=== PATIENT | female | born 1970 | race Caucasian/White ===

== ENCOUNTER 2024-12-12 08:14 | Outpatient (CLI) | payer MEDICAID, SELFPAY ==
[2024-12-11 16:19] LABS: Basophils % (Auto) 1 % (0-2.5); Eosinophils # (Auto) 0.1 Thou/mm3 (0.0-0.5); Eosinophils % (Auto) 1 % (0-10); Hematocrit 34.2 % (36.0-46.0); Immature Granulocytes % (Auto) 0 % (0-0); Immature Granulocytes Auto 0.02 Thou/mm3 (0.00-0.00); Lymphocytes # (Auto) 1.5 Thou/mm3 (1.0-4.8); Lymphocytes % (Auto) 32 % (10-50); Mean Corpuscular HGB Conc 35.1 g/dl (31.0-37.0); Mean Corpuscular Hemoglobin 31.6 pg (25.0-35.0); Mean Corpuscular Volume 90 fL (80-100); Monocytes # (Auto) 0.5 Thou/mm3 (0.0-0.8); Monocytes % (Auto) 11 % (0-12); Neutrophils # (Auto) 2.4 Thou/mm3 (1.8-7.7); Neutrophils % (Auto) 54 % (37-80); Nucleated Red Blood Cell % 0 /100 WBC (0); Platelet Count 182 Thou/mm3 (140-440); RDW Standard Deviation 41.1 fL (36.4-46.3); White Blood Count 4.5 Thou/mm3 (3.6-11.0)
[2024-12-11 16:38] LABS: INR 1.1 (0.9-1.3); Partial Thromboplastin Time 27.7 Seconds (22.0-36.0); Prothrombin Time 11.6 Seconds (9.0-12.2)
--- NOTE | 2024-12-12 08:30 | XR_ITS ---
Examinations: Ultrasound-guided percutaneous breast biopsy, left breast 2:00 nodule Left breast sonography limited INDICATIONS: Left breast sonogram September 19, 2024 BI-RADS 4 suspicious mass 2:00 position left breast. Exam date and time: December 12, 2024 0911 hours. Informed consent provided. Technique: A timeout was completed verifying correct patient, procedure, site, positioning, and special equipment if applicable Informed consent provided. The patient was placed in a supine position for the breast biopsy. Sonographic images of the breast were performed for localization of the suspicious nodule The patient's breast was prepped and draped in sterile fashion. Maximum sterile barrier technique, hand hygiene, ultrasound sterile technique 1% lidocaine was used to anesthetize the skin and breast adjacent to the suspicious nodule. Utilizing ultrasonographic guidance, 8 core biopsies were obtained of the suspicious nodule utilizing an 18-gauge BioPince needle. The specimens appears satisfactory. \ Estimated blood loss 3 cc. The patient tolerated the procedure well and there were no complications. Impression: Successful ultrasound-guided percutaneous breast biopsy left breast 2:00 nodule
== END 2024-12-12 08:56 | disposition home or self-care (01) ==
LOC: SIRX 08:14
PROVIDERS: Radiology Diagnostic Radiology; PCP Family Medicine; Referring Provider Family Medicine; Visit Provider Family Medicine
DX: C50.412 Malignant neoplasm of upper-outer quadrant of left female breast (principal); Z01.812 Encounter for preprocedural laboratory examination
CPT/HCPCS: 19083; 36415; 85025; 85610; 85730

== ENCOUNTER 2025-02-12 09:03 | Outpatient (RCR) | payer MEDICAID, SELFPAY ==
--- NOTE | 2025-02-12 22:31 | CTCCONSULT_ITS ---
Patient: RESHMA WEBER : 1970 MR#: [id number] Page 4 of 6 CONSULTATION NOTE DATE OF CONSULTATION: 02/12/2025 NAME: RESHMA WEBER ACCOUNT: [id number] : 1970 AGE: 55 REFERRING PHYSICIAN: Juan Pinto MD PRIMARY PHYSICIAN: Juan Pinto MD REASON FOR VISIT: New consult for Breast Cancer ONCOLOGY HISTORY: DIAGNOSIS: Malignant neoplasm of overlapping sites of left female breast [ICD10] C50.812 DATE OF DIAGNOSIS: 12/12/2024 STAGE/TNM: IIA T2 N0 M0 TREATMENT HISTORY: Care?Plan Start?Date Cycle Day Intent DOCETAXEL,?HERCEPTIN,?PERJETA,?CARBO 02/12/202512 05 Curative?(primary) HISTORY OF PRESENT ILLNESS: 55-year-old female who was initially diagnosed with suspicious mass in September 2024. Patient eventually had a biopsy in November 2024 and was diagnosed with invasive ductal carcinoma. Patient have not received any treatment for the cancer. Getting worse. OTHER MEDICAL HISTORY/CONDITIONS: SEIZURE??EPISODES?X5?YEARS RT?WRIST?2021,?LT?ARM?2023 FAMILY HISTORY: Patient?denies?family?cancer?history. 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 Celexa - 20 mg 1 tab Daily 2. Dilantin Extended - 100 mg 3 Capsule Three times a day Medications Last Reconciled by Taryn Agosto MA on 02/12/2025 ALLERGIES: Compazine REVIEW OF SYSTEMS: A complete 14-point review of systems was performed and is negative except as noted in interval history. PHYSICAL EXAMINATION: VITAL SIGNS: Temperature?98.3, B/P?113/76, Height?64?inches, Oxygen?Saturation?100% Weight?116?lbs PAIN: 0 - No pain GENERAL APPEARANCE: Appears well, in no apparent distress, appropriately interactive. HEENT: Normocephalic, no temporal wasting, normal conjunctiva, no scleral icterus, normal hearing, lips without lesions, neck normal range of motion. CARDIOVASCULAR: Not assessed. PULMONARY: Normal respiratory effort, no respiratory distress or use of accessory muscles, speaking in full sentences, no tachypnea. EXTREMITIES: No pedal edema or cyanosis. SKIN: Normal skin appearance. NEUROLOGIC: Alert and oriented x4. PSHYCHIATRIC: Appropriate affect, mood normal, behavior normal, intact thought and speech. Bilateral breast implants palpated. Left breast has about 5 cm mass cystic in nature over the implant under the skin. LABORATORY DATA: I have personally reviewed and interpreted each of the patient?s relevant lab tests, abnormal findings are below: Date ASSESSMENT/PLAN: ER positive [place] negative HER2 positive breast cancer at least stage IIa Patient have HER2 positive breast cancer and will need neoadjuvant chemotherapy Young patient with no comorbidities Will start on TCHP Baseline echocardiogram Port catheter for chemotherapy First cycle without Perjeta Second cycle with the Perjeta loading Start chemotherapy LEATHA General surgery referral to start port catheter LEATHA Patient can get surgery after neoadjuvant chemotherapy Patient is planning for conservative breast surgery Will refer to radiation after the chemotherapy Baseline imaging to confirm staging ORDERS: Order # Description [id number] Breast Ultrasound + Left [id number] CBC + Comprehensive Metabolic Panel [id number] Lab Appointment [id number] Follow Up Appointment [id number] CBC + Comprehensive Metabolic Panel [id number] Lab Appointment [id number] Follow Up Appointment [id number] CBC + Comprehensive Metabolic Panel [id number] Lab Appointment [id number] Follow Up Appointment [id number] CBC + Comprehensive Metabolic Panel [id number] Lab Appointment [id number] Follow Up Appointment [id number] Cardiac ECHO [id number] CBC + Comprehensive Metabolic Panel [id number] Lab Appointment [id number] Follow Up Appointment [id number] CBC + Comprehensive Metabolic Panel [id number] Lab Appointment [id number] Follow Up Appointment RETURN TO CLINIC: 4 weeks after cycle 1 chemotherapy BILLING AND COMPLIANCE: I reviewed external records from providers outside my specialty as summarized above. I spent a total of 50 minutes on this patient?s care on the day of their visit excluding time spent related to any billed procedures. This time includes time spent with the patient as well as time spent documenting in the medical record, reviewing patients records and tests, obtaining history, placing orders, communicating with other healthcare professionals, counseling the patient, family or caregiver, and/or care coordination for the diagnoses above. Electronically Signed by: Juan Pinto MD T: 10:29 PM CC: PCP: Juan Pinto Referring: Juan Pinto This document was completed utilizing speech recognition software. Grammatical errors, random word insertions, pronoun errors, and incomplete sentences are an occasional consequence of this system due to software limitations, ambient noise, and hardware issues. Any formal questions or concerns about the content, text or information contained within the body of this dictation should be directly addressed to the provider for clarification.
== END 2025-02-12 23:59 | disposition home or self-care (01) ==
LOC: SCTC 09:03
PROVIDERS: PCP Physician Assistant; Referring Provider Internal Medicine Hematology & Oncology; Visit Provider Internal Medicine Hematology & Oncology
DX: C50.412 Malignant neoplasm of upper-outer quadrant of left female breast (principal); Z17.0 Estrogen receptor positive status [ER+]; Z17.22 Progesterone receptor negative status; Z17.31 Human epidermal growth factor receptor 2 positive status
CPT/HCPCS: 99213; G0463

== ENCOUNTER 2025-02-23 08:10 | Outpatient (CLI) | payer MEDICAID, SELFPAY ==
[2025-02-22 09:51] LABS: Basophils % (Auto) 1 % (0-2.5); Eosinophils # (Auto) 0.1 Thou/mm3 (0.0-0.5); Eosinophils % (Auto) 2 % (0-10); Hemoglobin 12.4 g/dL (12.0-16.0); Immature Granulocytes % (Auto) 0 % (0-0); Immature Granulocytes Auto 0.02 Thou/mm3 (0.00-0.00); Lymphocytes # (Auto) 1.1 Thou/mm3 (1.0-4.8); Lymphocytes % (Auto) 24 % (10-50); Mean Corpuscular HGB Conc 35.4 g/dl (31.0-37.0); Mean Corpuscular Hemoglobin 31.5 pg (25.0-35.0); Mean Corpuscular Volume 89 fL (80-100); Monocytes # (Auto) 0.6 Thou/mm3 (0.0-0.8); Monocytes % (Auto) 14 % (0-12); Neutrophils # (Auto) 2.7 Thou/mm3 (1.8-7.7); Neutrophils % (Auto) 60 % (37-80); Nucleated Red Blood Cell % 0 /100 WBC (0); Platelet Count 143 Thou/mm3 (140-440); RDW Standard Deviation 42.5 fL (36.4-46.3); Red Blood Count 3.94 Miln/mm3 (4.00-5.20); White Blood Count 4.6 Thou/mm3 (3.6-11.0)
[2025-02-22 10:09] LABS: Partial Thromboplastin Time 27.7 Seconds (22.0-36.0); Prothrombin Time 11.4 Seconds (9.0-12.2)
[2025-02-23] VITALS (16 sets, daily range): BP systolic 109–141; BP diastolic 58–79; PULSE 60–80; RESP 12–19; TEMP 36.1–36.8; O2SAT 100
--- NOTE | 2025-02-23 10:00 | XR_ITS ---
Exam: Fluoroscopic and ultrasound-guided right IJ port placement. Date: February 23, 2025 Indication: Needs long-term vascular access Fluoroscopy time 1.5 minutes Dose: 463 mGy Technique: After a discussion of risks and benefits informed consent was obtained from the patient. Patient was brought to the angiography suite and placed supine on the exam table. Preliminary ultrasound evaluation showed the right IJ to be patent. The skin overlying the right neck and upper chest was cleaned and draped in normal sterile surgical fashion. 20 cc's of 1% lidocaine was used for local anesthesia. Conscious sedation was begun with direct nursing supervision. Using ultrasound guidance access to the IJ was obtained with a micropuncture needle. An 0.018 wire was advanced through the needle into the SVC and the needle was withdrawn. A 5 [place]er micropuncture change sheath was advanced over the wire, and the wire removed. The sheath was capped. A 5 cm incision was made over right chest. Small pouch was created with a combination of sharp and blunt dissection. The port and catheter tubing were attached to the tunneling device and pulled underneath the skin and exiting at the right IJ access site. Right IJ 5 inch sheath was replaced with a 7 [place]er peel-away sheath. Catheter was advanced through the peel-away sheath and peel-away sheath was removed. Distal catheter tip was appropriately positioned at the cavoatrial junction. The port pocket was closed with deep interrupted sutures using 2-0 Vicryl and superficial running sutures utilized 3-0 Vicryl. IJ access site was closed with 3-0 Vicryl and Dermabond glue Port flushed and aspirated easily and is ready for use. Impression: Successful placement of right IJ port as above with distal tip at the caval atrial junction Catheter is ready for use.
== END 2025-02-23 13:26 | disposition home or self-care (01) ==
PROVIDERS: Radiology Diagnostic Radiology; PCP Family Medicine; Referring Provider Family Medicine; Visit Provider Family Medicine
DX: C50.912 Malignant neoplasm of unspecified site of left female breast (principal); Z01.812 Encounter for preprocedural laboratory examination
CPT/HCPCS: 36558; 36415; 76937; 77001; 85025; 85610; 85730; 99152; 99153; C1769; C1788; C1894; J7050

== ENCOUNTER 2025-03-09 10:14 | Outpatient (RCR) | payer MEDICAID, SELFPAY ==
[2025-03-07 16:57] LABS: Basophils % (Auto) 1 % (0-2.5); Eosinophils # (Auto) 0.1 Thou/mm3 (0.0-0.5); Eosinophils % (Auto) 2 % (0-10); Hematocrit 32.2 % (36.0-46.0); Hemoglobin 11.2 g/dL (12.0-16.0); Immature Granulocytes % (Auto) 1 % (0-0); Immature Granulocytes Auto 0.02 Thou/mm3 (0.00-0.00); Lymphocytes # (Auto) 1.3 Thou/mm3 (1.0-4.8); Lymphocytes % (Auto) 37 % (10-50); Mean Corpuscular HGB Conc 34.8 g/dl (31.0-37.0); Mean Corpuscular Hemoglobin 31.3 pg (25.0-35.0); Mean Corpuscular Volume 90 fL (80-100); Monocytes # (Auto) 0.4 Thou/mm3 (0.0-0.8); Monocytes % (Auto) 12 % (0-12); Neutrophils # (Auto) 1.7 Thou/mm3 (1.8-7.7); Neutrophils % (Auto) 48 % (37-80); Nucleated Red Blood Cell % 0 /100 WBC (0); Platelet Count 171 Thou/mm3 (140-440); RDW Standard Deviation 42.4 fL (36.4-46.3); Red Blood Count 3.58 Miln/mm3 (4.00-5.20); White Blood Count 3.6 Thou/mm3 (3.6-11.0)
[2025-03-07 17:24] LABS: Alanine Aminotransferase 16 U/L (10-49); Albumin, Serum 3.9 gm/dL (3.5-5.0); Albumin/Globulin Ratio 1.5 (1.2-2.2); Alkaline Phosphatase 74 U/L (46-116); Anion Gap 9 (7-16); Aspartate Amino Transferase 27 U/L (0-34); BUN/Creatinine Ratio 16 Ratio (12-20); Bilirubin,Total 0.3 mg/dL (0.3-1.2); Blood Urea Nitrogen 13 mg/dL (9-23); Calcium 8.9 mg/dL (8.3-10.6); Carbon Dioxide 24.7 mMol/L (20.0-31.0); Chloride 103 mMol/L (98-107); Creatinine (Component) 0.8 mg/dL (0.6-1.3); Globulin 2.6 gm/dL (2.3-3.5); Glucose 104 mg/dL (74-106); Osmolality,Calculated 273 (275-295); Potassium 3.5 mMol/L (3.4-5.1); Sodium 137 mMol/L (136-145); Total Protein 6.5 gm/dL (5.7-8.2); eGFR > 60 See Note
== END 2025-03-14 23:59 | disposition home or self-care (01) ==
LOC: SCTC 10:14
PROVIDERS: PCP Family Medicine; Referring Provider Family Medicine; Visit Provider Internal Medicine Hematology & Oncology
DX: Z51.11 Encounter for antineoplastic chemotherapy (principal); C50.412 Malignant neoplasm of upper-outer quadrant of left female breast; Z17.0 Estrogen receptor positive status [ER+]; Z17.22 Progesterone receptor negative status; Z17.31 Human epidermal growth factor receptor 2 positive status
CPT/HCPCS: 36591; 80053; 85025; 96367; 96372; 96413; 96415; 96417; A4216; J1100; J1453; J1642; J2405; J7050; J9045; J9171; J9306; Q5117; Q5122; J2506

== ENCOUNTER → 2025-03-23 | Outpatient (CLI) | payer MEDICAID, SELFPAY ==
--- NOTE | 2025-03-23 14:30 | XR_ITS ---
Examination: Breast ultrasound, unilateral, left complete Date and time of exam: March 23, 2025 1516 hours Comparison left breast biopsy 2:00 nodule December 04, 2024, mammogram September 19, 2024, left breast sonogram September 19, 2024 INDICATIONS: Breast cancer diagnosis left breast on biopsy December 04, 2024, mammogram September 19, 2024 2:00 nodule 28 mm indistinct margins, left breast sonogram September 19, 2024 2:00 nodule indistinct margins 27 x 22 mm Technique: Real-time marcano scale ultrasonographic imaging performed left breast including all 4 quadrants as well as nipple retroareolar and axillary region. Findings: 2:00 oval mass indistinct margins 3.4 x 1.4 x 2.8 cm IMPRESSION: Enlarging BI-RADS 5 nodule 2:00 position left breast
== END | disposition home or self-care (01) ==
PROVIDERS: PCP Family Medicine; Referring Provider Internal Medicine Hematology & Oncology; Visit Provider Internal Medicine Hematology & Oncology
DX: N63.21 Unspecified lump in the left breast, upper outer quadrant (principal); C50.812 Malignant neoplasm of overlapping sites of left female breast
CPT/HCPCS: 76641

== ENCOUNTER → 2025-03-27 | Outpatient (CLI) | payer MEDICAID, SELFPAY ==
--- NOTE | 2025-03-27 12:30 | XR_ITS ---
Examination: Bone scan whole body, radioisotope Date and time of exam: March 27, 2025 1234 hours INDICATIONS: Diagnosis malignant neoplasm left breast diagnosed January 2025, receiving chemotherapy, staging Technique: Study has been performed with intravenous administration of 23.4 mci 99M technetium MDP. Anterior, posterior whole body images are obtained. Images have been obtained including the lower extremities. Findings: Increased isotope accumulation right mandible Increased isotope accumulation left shoulder IMPRESSION: Positive bone scan but nonspecific Recommend plain films mandible left shoulder follow-up
== END | disposition home or self-care (01) ==
LOC: SNUC 08:53
PROVIDERS: Referring Provider Family Medicine; Visit Provider Family Medicine
DX: R93.7 Abnormal findings on diagnostic imaging of other parts of musculoskeletal system (principal); C50.912 Malignant neoplasm of unspecified site of left female breast
CPT/HCPCS: 78306; A9503

== ENCOUNTER 2025-04-05 12:04 | Outpatient (RCR) | payer MEDICAID, SELFPAY ==
[2025-03-28 15:01] LABS: Basophils % (Auto) 0 % (0-2.5); Eosinophils % (Auto) 1 % (0-10); Hematocrit 29.4 % (36.0-46.0); Hemoglobin 10.7 g/dL (12.0-16.0); Immature Granulocytes % (Auto) 3 % (0-0); Immature Granulocytes Auto 0.17 Thou/mm3 (0.00-0.00); Lymphocytes # (Auto) 1.4 Thou/mm3 (1.0-4.8); Lymphocytes % (Auto) 23 % (10-50); Mean Corpuscular HGB Conc 36.4 g/dl (31.0-37.0); Mean Corpuscular Volume 88 fL (80-100); Monocytes # (Auto) 0.6 Thou/mm3 (0.0-0.8); Monocytes % (Auto) 10 % (0-12); Neutrophils # (Auto) 3.7 Thou/mm3 (1.8-7.7); Neutrophils % (Auto) 63 % (37-80); Nucleated Red Blood Cell % 0 /100 WBC (0); Platelet Count 195 Thou/mm3 (140-440); RDW Standard Deviation 41.4 fL (36.4-46.3); Red Blood Count 3.34 Miln/mm3 (4.00-5.20); White Blood Count 5.9 Thou/mm3 (3.6-11.0)
[2025-03-28 15:27] LABS: Alanine Aminotransferase 15 U/L (10-49); Albumin, Serum 4.2 gm/dL (3.5-5.0); Albumin/Globulin Ratio 1.6 (1.2-2.2); Alkaline Phosphatase 90 U/L (46-116); Anion Gap 11 (7-16); Aspartate Amino Transferase 26 U/L (0-34); BUN/Creatinine Ratio 10 Ratio (12-20); Bilirubin,Total 0.3 mg/dL (0.3-1.2); Blood Urea Nitrogen 7 mg/dL (9-23); Calcium 8.7 mg/dL (8.3-10.6); Calcium (Corrected) 8.7 mg/dL (8.5-10.1); Carbon Dioxide 24.7 mMol/L (20.0-31.0); Chloride 97 mMol/L (98-107); Creatinine (Component) 0.7 mg/dL (0.6-1.3); Globulin 2.7 gm/dL (2.3-3.5); Glucose 98 mg/dL (74-106); Osmolality,Calculated 264 (275-295); Potassium 3.7 mMol/L (3.4-5.1); Sodium 133 mMol/L (136-145); Total Protein 6.9 gm/dL (5.7-8.2); eGFR > 60 See Note
--- NOTE | 2025-04-11 00:03 | CTCFLWUP_ITS ---
Patient: RESHMA WEBER : 1970 Page 4 of 5 FOLLOW UP NOTE DATE OF SERVICE: 04/04/2025 NAME: RESHMA WEBER ACCOUNT: [id number] : 1970 AGE: 55 INTERVAL HISTORY: Doing well on treatment . ONCOLOGY HISTORY: DIAGNOSIS: Malignant neoplasm of overlapping sites of left female breast [ICD10] C50.812 DATE OF DIAGNOSIS: 12/12/2024 STAGE/TNM: IIA T2 N0 M0 TREATMENT HISTORY: Care?Plan Start?Date Cycle Day Intent DOCETAXEL,?HERCEPTIN,?PERJETA,?CARBO 03/08/2025 1 Curative?(primary) HISTORY OF PRESENT ILLNESS: 55-year-old female who was initially diagnosed with suspicious mass in September 2024. Patient eventually had a biopsy in November 2024 and was diagnosed with invasive ductal carcinoma. Patient have not received any treatment for the cancer. Getting worse. OTHER MEDICAL HISTORY/CONDITIONS: SEIZURE??EPISODES?X5?YEARS RT?WRIST?2021,?LT?ARM?2023 FAMILY HISTORY: Patient?denies?family?cancer?history. SOCIAL HISTORY: Occupational?History:?UNEMPLOYED, STAY AT HOME Education?Level:?College Graduate, 2 year degree Marital?Status:?Single Tobacco Use:?OCCASIONALY, VAPE SMOKER X 1 YEAR Drug?Note:?DENIES Social?History?Note:?OCCASIONALLY [employer] HISTORY: Menarche?-?Age:?14 Date?LMP:?11/15/1997 Date?of?last?pap?smear:?2023 Hormone?Use:?YES,?10?YRS :?1 Live?Births:?0 Painful?intercourse:?N-No Date?Last?Mammogram:?09/19/2024 Gynecological?Note:?not?sexually?active MEDICATIONS: 1. Celexa - 20 mg 1 tab Daily 2. dexamethasone - 4 mg 1 tab Daily 3. Dilantin Extended - 100 mg 3 Capsule Three times a day 4. Emend - 125 mg (1)- 80 mg (2) 1 Capsule Daily 5. Lidocaine Viscous - 2 % 2 Teaspoon Daily 6. Maalox Advanced - 200-200-20 mg/5 mL 20 mL Daily 7. nystatin - 100,000 unit/mL 1 mL Daily 8. ondansetron - 8 mg 1 tab Daily Medications Last Reconciled by Huma Kidd MA on 04/04/2025 ALLERGIES: Compazine; Compazine REVIEW OF SYSTEMS: A complete 14-point review of systems was performed and is negative except as noted in interval history. PHYSICAL EXAMINATION: VITAL SIGNS: Temperature?98.2, B/P?119/73, Oxygen?Saturation?100% Weight?109?lbs (Change?since?03/30/25:?-4.2?lbs) PAIN: 0 - No pain ECOG Performance Status: 0 - Asymptomatic and fully active GENERAL APPEARANCE: Appears well, in no apparent distress, appropriately interactive. HEENT: Normocephalic, no temporal wasting, normal conjunctiva, no scleral icterus, normal hearing, lips without lesions, neck normal range of motion. CARDIOVASCULAR: Not assessed. PULMONARY: Normal respiratory effort, no respiratory distress or use of accessory muscles, speaking in full sentences, no tachypnea. EXTREMITIES: No pedal edema or cyanosis. SKIN: Normal skin appearance. NEUROLOGIC: Alert and oriented x4. PSHYCHIATRIC: Appropriate affect, mood normal, behavior normal, intact thought and speech. Bilateral breast implants palpated. Left breast has about 2-3 cm which was 5 cm mass cystic in nature over the implant under the skin. LABORATORY DATA: I have personally reviewed and interpreted each of the patient?s relevant lab tests, abnormal findings are below: Date 03/07/25 03/28/25 ??WHITE?BLOOD?COUNT?(Thou/mm3) 3.6 5.9 ??RED?BLOOD?COUNT?(Miln/mm3) 3.58?L 3.34?L ??HEMOGLOBIN?(gm/dl) 11.2?L 10.7?L ??HEMATOCRIT?(%) 32.2?L 29.4?L ??PLATELET?COUNT?(Thou/mm3) 171 195 ??NEUTROPHILS?%,?AUTO?(%) 48 63 ??LYMPH?%,?AUTO?(%) 37 23 ??NEUTROPHILS,?AUTO?(Thou/mm3) 1.7?L 3.7 ??GLUCOSE,RANDOM?(mg/dL) 104 98 ??BLOOD?UREA?NITROGEN?(mg/dL) 13 7?L ??CREATININE?(mg/dL) 0.80 0.70 ??SODIUM?(mmol/L) 137 133?L ??POTASSIUM?(mmol/L) 3.5 3.7 ??CHLORIDE?(mmol/L) 103 97?L ??CrCl?(CandG)?(ml/min) 65.56 72.36 ??AST/SGOT?(Unit/L) 27 26 ??ALT/SGPT?(Unit/L) 16 15 ??ALKALINE?PHOSPHATASE?(Unit/L) 74 90 ??BILIRUBIN,?TOTAL?(mg/dL) 0.3 0.3 ??PROTEIN?TOTAL?(gm/dl) 6.5 6.9 ??ALBUMIN,?SERUM?(gm/dl) 3.9 4.2 ??GLOBULIN?(gm/dl) 2.6 2.7 ??ALBUMIN/GLOBULIN?RATIO 1.5 1.6 ??CALCIUM,?SERUM?(mg/dL) 8.9 8.7 ??CALCIUM?SERUM?(CORRECTED)?(mg/dL) 9.0 8.7 ASSESSMENT/PLAN: ER positive [place] negative HER2 positive breast cancer at least stage IIa Patient have HER2 positive breast cancer and will need neoadjuvant chemotherapy Young patient with no comorbidities on TCHP Baseline echocardiogram stable Port catheter for chemotherapy Cont chemotherapy General surgery referral was done Patient can get surgery after neoadjuvant chemotherapy Patient is planning for conservative breast surgery Will refer to radiation after the chemotherapy Cont therapy BILLING AND COMPLIANCE: I reviewed external records from providers outside my specialty as summarized above. I spent a total of 50 minutes on this patient?s care on the day of their visit excluding time spent related to any billed procedures. This time includes time spent with the patient as well as time spent documenting in the medical record, reviewing patients records and tests, obtaining history, placing orders, communicating with other healthcare professionals, counseling the patient, family or caregiver, and/or care coordination for the diagnoses above. Electronically Signed by: Juan Pinto MD T: 12:01 AM CC: PCP: Juan Pinto Referring: Juan Pinto This document was completed utilizing speech recognition software. Grammatical errors, random word insertions, pronoun errors, and incomplete sentences are an occasional consequence of this system due to software limitations, ambient noise, and hardware issues. Any formal questions or concerns about the content, text or information contained within the body of this dictation should be directly addressed to the provider for clarification.
== END 2025-04-14 23:59 | disposition home or self-care (01) ==
LOC: SCTC 12:04
PROVIDERS: PCP Physician Assistant; Referring Provider Internal Medicine Hematology & Oncology; Visit Provider Internal Medicine Hematology & Oncology
DX: Z51.11 Encounter for antineoplastic chemotherapy (principal); C50.412 Malignant neoplasm of upper-outer quadrant of left female breast; Z17.0 Estrogen receptor positive status [ER+]; Z17.22 Progesterone receptor negative status; Z17.31 Human epidermal growth factor receptor 2 positive status
CPT/HCPCS: 36591; 80053; 85025; 96360; 96367; 96372; 96413; 96417; 99212; 99424; 99425; A4216; J1100; J1453; J1642; J2405; J7030; J7040; J7050; J9045; J9171; J9306; Q5117; Q5122; G0463; J2506

== ENCOUNTER 2025-05-10 08:15 | Outpatient (RCR) | payer MEDICAID, SELFPAY ==
[2025-04-18 11:01] LABS: Basophils % (Auto) 0 % (0-2.5); Eosinophils % (Auto) 0 % (0-10); Immature Granulocytes % (Auto) 1 % (0-0); Immature Granulocytes Auto 0.04 Thou/mm3 (0.00-0.00); Lymphocytes # (Auto) 1.1 Thou/mm3 (1.0-4.8); Lymphocytes % (Auto) 33 % (10-50); Mean Corpuscular HGB Conc 34.6 g/dl (31.0-37.0); Mean Corpuscular Hemoglobin 32.4 pg (25.0-35.0); Mean Corpuscular Volume 94 fL (80-100); Monocytes # (Auto) 0.5 Thou/mm3 (0.0-0.8); Monocytes % (Auto) 16 % (0-12); Neutrophils # (Auto) 1.7 Thou/mm3 (1.8-7.7); Neutrophils % (Auto) 50 % (37-80); Nucleated Red Blood Cell % 0 /100 WBC (0); Platelet Count 120 Thou/mm3 (140-440); RDW Standard Deviation 51.6 fL (36.4-46.3); Red Blood Count 2.78 Miln/mm3 (4.00-5.20); White Blood Count 3.4 Thou/mm3 (3.6-11.0)
[2025-04-18 11:20] LABS: Alanine Aminotransferase 13 U/L (10-49); Albumin, Serum 3.7 gm/dL (3.5-5.0); Albumin/Globulin Ratio 1.9 (1.2-2.2); Alkaline Phosphatase 78 U/L (46-116); Anion Gap 11 (7-16); Aspartate Amino Transferase 24 U/L (0-34); BUN/Creatinine Ratio 14 Ratio (12-20); Bilirubin,Total 0.3 mg/dL (0.3-1.2); Blood Urea Nitrogen 10 mg/dL (9-23); Calcium 8.2 mg/dL (8.3-10.6); Calcium (Corrected) 8.4 mg/dL (8.5-10.1); Chloride 102 mMol/L (98-107); Creatinine (Component) 0.7 mg/dL (0.6-1.3); Globulin 1.9 gm/dL (2.3-3.5); Glucose 78 mg/dL (74-106); Osmolality,Calculated 273 (275-295); Potassium 3.6 mMol/L (3.4-5.1); Sodium 138 mMol/L (136-145); Total Protein 5.6 gm/dL (5.7-8.2); eGFR > 60 See Note
[2025-05-09 10:04] LABS: Basophils % (Auto) 0 % (0-2.5); Eosinophils % (Auto) 0 % (0-10); Hematocrit 23.9 % (36.0-46.0); Immature Granulocytes % (Auto) 1 % (0-0); Immature Granulocytes Auto 0.05 Thou/mm3 (0.00-0.00); Lymphocytes # (Auto) 0.9 Thou/mm3 (1.0-4.8); Lymphocytes % (Auto) 25 % (10-50); Mean Corpuscular HGB Conc 36.4 g/dl (31.0-37.0); Mean Corpuscular Hemoglobin 33.7 pg (25.0-35.0); Mean Corpuscular Volume 93 fL (80-100); Monocytes # (Auto) 0.8 Thou/mm3 (0.0-0.8); Monocytes % (Auto) 21 % (0-12); Neutrophils # (Auto) 1.9 Thou/mm3 (1.8-7.7); Neutrophils % (Auto) 52 % (37-80); Nucleated Red Blood Cell % 0 /100 WBC (0); Platelet Count 87 Thou/mm3 (140-440); RDW Standard Deviation 60.2 fL (36.4-46.3); Red Blood Count 2.58 Miln/mm3 (4.00-5.20); White Blood Count 3.6 Thou/mm3 (3.6-11.0)
[2025-05-09 10:21] LABS: Alanine Aminotransferase 15 U/L (10-49); Albumin/Globulin Ratio 1.9 (1.2-2.2); Alkaline Phosphatase 77 U/L (46-116); Anion Gap 7 (7-16); Aspartate Amino Transferase 29 U/L (0-34); BUN/Creatinine Ratio 11 Ratio (12-20); Bilirubin,Total 0.3 mg/dL (0.3-1.2); Blood Urea Nitrogen 9 mg/dL (9-23); Calcium 8.5 mg/dL (8.3-10.6); Calcium (Corrected) 8.5 mg/dL (8.5-10.1); Carbon Dioxide 25.8 mMol/L (20.0-31.0); Chloride 98 mMol/L (98-107); Creatinine (Component) 0.8 mg/dL (0.6-1.3); Globulin 2.1 gm/dL (2.3-3.5); Glucose 93 mg/dL (74-106); Osmolality,Calculated 261 (275-295); Potassium 3.5 mMol/L (3.4-5.1); Sodium 131 mMol/L (136-145); Total Protein 6.1 gm/dL (5.7-8.2); eGFR > 60 See Note
[2025-05-09 10:42] LABS: Hemoglobin 8.7 g/dL (12.0-16.0)
== END 2025-05-14 23:59 | disposition home or self-care (01) ==
LOC: SCTC 08:15
PROVIDERS: PCP Physician Assistant; Referring Provider Physician Assistant; Visit Provider Internal Medicine Hematology & Oncology
DX: Z51.11 Encounter for antineoplastic chemotherapy (principal); C50.412 Malignant neoplasm of upper-outer quadrant of left female breast; Z17.0 Estrogen receptor positive status [ER+]; Z17.22 Progesterone receptor negative status; Z17.31 Human epidermal growth factor receptor 2 positive status
CPT/HCPCS: 36430; 36591; 80053; 85025; 86850; 86900; 86901; 86923; 96360; 96367; 96372; 96413; 96417; A4216; J1100; J1453; J1642; J2405; J7030; J7040; J7050; J9045; J9171; J9306; P9016; Q5117; Q5122; J2506

== ENCOUNTER 2025-06-12 14:34 | Outpatient (RCR) | payer MEDICAID, SELFPAY ==
[2025-05-21 09:08] LABS: Basophils # (Auto) 0.0 Thou/mm3 (0.0-0.2); Basophils % (Auto) 0 % (0-2.5); Eosinophils # (Auto) 0.0 Thou/mm3 (0.0-0.5); Eosinophils % (Auto) 1 % (0-10); Hematocrit 28.0 % (36.0-46.0); Hemoglobin 9.9 g/dL (12.0-16.0); Immature Granulocytes Auto 0.02 Thou/mm3 (0.00-0.00); Lymphocytes # (Auto) 1.3 Thou/mm3 (1.0-4.8); Lymphocytes % (Auto) 26 % (10-50); Mean Corpuscular HGB Conc 35.4 g/dl (31.0-37.0); Mean Corpuscular Hemoglobin 33.9 pg (25.0-35.0); Mean Corpuscular Volume 96 fL (80-100); Monocytes # (Auto) 0.8 Thou/mm3 (0.0-0.8); Monocytes % (Auto) 16 % (0-12); Neutrophils # (Auto) 2.8 Thou/mm3 (1.8-7.7); Neutrophils % (Auto) 57 % (37-80); Nucleated Red Blood Cell # 0.00 Thou/mm3 (0.00-0.00); Nucleated Red Blood Cell % 0 /100 WBC (0); Platelet Count 147 Thou/mm3 (140-440); RDW Standard Deviation 57.5 fL (36.4-46.3); Red Blood Count 2.92 Miln/mm3 (4.00-5.20); White Blood Count 5.0 Thou/mm3 (3.6-11.0)
[2025-05-21 09:22] LABS: Alanine Aminotransferase 12 U/L (10-49); Albumin, Serum 4.1 gm/dL (3.5-5.0); Albumin/Globulin Ratio 1.7 (1.2-2.2); Alkaline Phosphatase 111 U/L (46-116); Anion Gap 9 (7-16); Aspartate Amino Transferase 24 U/L (0-34); BUN/Creatinine Ratio 21 Ratio (12-20); Bilirubin,Total 0.3 mg/dL (0.3-1.2); Blood Urea Nitrogen 15 mg/dL (9-23); Calcium 9.2 mg/dL (8.3-10.6); Calcium (Corrected) 9.2 mg/dL (8.5-10.1); Carbon Dioxide 24.4 mMol/L (20.0-31.0); Chloride 103 mMol/L (98-107); Creatinine (Component) 0.7 mg/dL (0.6-1.3); Globulin 2.4 gm/dL (2.3-3.5); Glucose 96 mg/dL (74-106); Osmolality,Calculated 272 (275-295); Potassium 3.6 mMol/L (3.4-5.1); Sodium 136 mMol/L (136-145); Total Protein 6.5 gm/dL (5.7-8.2); eGFR > 60 See Note
[2025-06-08 09:33] LABS: Basophils # (Auto) 0.0 Thou/mm3 (0.0-0.2); Basophils % (Auto) 1 % (0-2.5); Eosinophils # (Auto) 0.0 Thou/mm3 (0.0-0.5); Eosinophils % (Auto) 0 % (0-10); Hematocrit 27.2 % (36.0-46.0); Hemoglobin 9.5 g/dL (12.0-16.0); Immature Granulocytes Auto 0.06 Thou/mm3 (0.00-0.00); Lymphocytes # (Auto) 1.4 Thou/mm3 (1.0-4.8); Lymphocytes % (Auto) 33 % (10-50); Mean Corpuscular HGB Conc 34.9 g/dl (31.0-37.0); Mean Corpuscular Hemoglobin 33.9 pg (25.0-35.0); Mean Corpuscular Volume 97 fL (80-100); Monocytes # (Auto) 0.4 Thou/mm3 (0.0-0.8); Monocytes % (Auto) 10 % (0-12); Neutrophils # (Auto) 2.3 Thou/mm3 (1.8-7.7); Neutrophils % (Auto) 55 % (37-80); Nucleated Red Blood Cell # 0.00 Thou/mm3 (0.00-0.00); Nucleated Red Blood Cell % 0 /100 WBC (0); Platelet Count 120 Thou/mm3 (140-440); RDW Standard Deviation 55.6 fL (36.4-46.3); Red Blood Count 2.80 Miln/mm3 (4.00-5.20); White Blood Count 4.1 Thou/mm3 (3.6-11.0)
[2025-06-08 10:03] LABS: Alanine Aminotransferase 12 U/L (10-49); Albumin, Serum 4.0 gm/dL (3.5-5.0); Albumin/Globulin Ratio 1.5 (1.2-2.2); Alkaline Phosphatase 100 U/L (46-116); Anion Gap 9 (7-16); Aspartate Amino Transferase 25 U/L (0-34); BUN/Creatinine Ratio 20 Ratio (12-20); Bilirubin,Total 0.3 mg/dL (0.3-1.2); Blood Urea Nitrogen 14 mg/dL (9-23); Calcium 8.9 mg/dL (8.3-10.6); Calcium (Corrected) 8.9 mg/dL (8.5-10.1); Carbon Dioxide 26.7 mMol/L (20.0-31.0); Chloride 101 mMol/L (98-107); Creatinine (Component) 0.7 mg/dL (0.6-1.3); Globulin 2.6 gm/dL (2.3-3.5); Glucose 113 mg/dL (74-106); Osmolality,Calculated 275 (275-295); Potassium 3.5 mMol/L (3.4-5.1); Sodium 137 mMol/L (136-145); Total Protein 6.6 gm/dL (5.7-8.2); eGFR > 60 See Note
== END 2025-06-14 23:59 | disposition home or self-care (01) ==
LOC: SCTC 14:34
PROVIDERS: PCP Physician Assistant; Referring Provider Physician Assistant; Visit Provider Internal Medicine Hematology & Oncology
DX: Z51.11 Encounter for antineoplastic chemotherapy (principal); C50.412 Malignant neoplasm of upper-outer quadrant of left female breast; Z17.0 Estrogen receptor positive status [ER+]; Z17.21 Progesterone receptor positive status; Z17.31 Human epidermal growth factor receptor 2 positive status
CPT/HCPCS: 36591; 80053; 85025; 96367; 96372; 96413; 96417; 99211; A4216; J1100; J1453; J1642; J2405; J7040; J7050; J9045; J9171; J9306; Q5117; Q5122; G0463; J2506

== ENCOUNTER 2025-07-05 11:54 | Outpatient (RCR) | payer MEDICAID, SELFPAY ==
[2025-06-29 11:37] LABS: Basophils # (Auto) 0.0 Thou/mm3 (0.0-0.2); Basophils % (Auto) 0 % (0-2.5); Eosinophils # (Auto) 0.0 Thou/mm3 (0.0-0.5); Eosinophils % (Auto) 0 % (0-10); Hematocrit 25.2 % (36.0-46.0); Hemoglobin 8.9 g/dL (12.0-16.0); Immature Granulocytes Auto 0.08 Thou/mm3 (0.00-0.00); Lymphocytes # (Auto) 1.6 Thou/mm3 (1.0-4.8); Lymphocytes % (Auto) 23 % (10-50); Mean Corpuscular HGB Conc 35.3 g/dl (31.0-37.0); Mean Corpuscular Hemoglobin 34.4 pg (25.0-35.0); Mean Corpuscular Volume 97 fL (80-100); Monocytes # (Auto) 0.7 Thou/mm3 (0.0-0.8); Monocytes % (Auto) 10 % (0-12); Neutrophils # (Auto) 4.4 Thou/mm3 (1.8-7.7); Neutrophils % (Auto) 66 % (37-80); Nucleated Red Blood Cell # 0.00 Thou/mm3 (0.00-0.00); Nucleated Red Blood Cell % 0 /100 WBC (0); Platelet Count 87 Thou/mm3 (140-440); RDW Standard Deviation 53.8 fL (36.4-46.3); Red Blood Count 2.59 Miln/mm3 (4.00-5.20); White Blood Count 6.7 Thou/mm3 (3.6-11.0)
[2025-06-29 11:58] LABS: Alanine Aminotransferase 16 U/L (10-49); Albumin, Serum 4.0 gm/dL (3.5-5.0); Albumin/Globulin Ratio 1.7 (1.2-2.2); Alkaline Phosphatase 115 U/L (46-116); Anion Gap 11 (7-16); Aspartate Amino Transferase 36 U/L (0-34); BUN/Creatinine Ratio 17 Ratio (12-20); Bilirubin,Total 0.3 mg/dL (0.3-1.2); Blood Urea Nitrogen 10 mg/dL (9-23); Calcium 9.0 mg/dL (8.3-10.6); Calcium (Corrected) 9.0 mg/dL (8.5-10.1); Carbon Dioxide 24.5 mMol/L (20.0-31.0); Chloride 97 mMol/L (98-107); Creatinine (Component) 0.6 mg/dL (0.6-1.3); Globulin 2.3 gm/dL (2.3-3.5); Glucose 89 mg/dL (74-106); Osmolality,Calculated 262 (275-295); Potassium 3.6 mMol/L (3.4-5.1); Sodium 132 mMol/L (136-145); Total Protein 6.3 gm/dL (5.7-8.2); eGFR > 60 See Note
[2025-07-02 09:17] LABS: Basophils # (Auto) 0.0 Thou/mm3 (0.0-0.2); Basophils % (Auto) 0 % (0-2.5); Eosinophils # (Auto) 0.0 Thou/mm3 (0.0-0.5); Eosinophils % (Auto) 0 % (0-10); Hematocrit 25.1 % (36.0-46.0); Immature Granulocytes Auto 0.06 Thou/mm3 (0.00-0.00); Lymphocytes # (Auto) 0.7 Thou/mm3 (1.0-4.8); Lymphocytes % (Auto) 11 % (10-50); Mean Corpuscular HGB Conc 34.7 g/dl (31.0-37.0); Mean Corpuscular Hemoglobin 34.8 pg (25.0-35.0); Mean Corpuscular Volume 100 fL (80-100); Monocytes # (Auto) 0.3 Thou/mm3 (0.0-0.8); Monocytes % (Auto) 5 % (0-12); Neutrophils # (Auto) 5.0 Thou/mm3 (1.8-7.7); Neutrophils % (Auto) 83 % (37-80); Nucleated Red Blood Cell # 0.00 Thou/mm3 (0.00-0.00); Nucleated Red Blood Cell % 0 /100 WBC (0); Platelet Count 89 Thou/mm3 (140-440); RDW Standard Deviation 55.1 fL (36.4-46.3); Red Blood Count 2.50 Miln/mm3 (4.00-5.20); White Blood Count 6.0 Thou/mm3 (3.6-11.0)
[2025-07-02 09:25] LABS: Hemoglobin 8.7 g/dL (12.0-16.0)
--- NOTE | 2025-07-05 14:17 | CTCFLWUP_ITS ---
Patient: RESHMA WEBER : 1970 Page 4 of 6 FOLLOW UP NOTE DATE OF SERVICE: 07/05/2025 NAME: RESHMA WEBER ACCOUNT: [id number] : 1970 AGE: 55 INTERVAL HISTORY: Completed chemotherapy . patient is on targeted therapy. ONCOLOGY HISTORY: DIAGNOSIS: Malignant neoplasm of overlapping sites of left female breast [ICD10] C50.812 DATE OF DIAGNOSIS: 12/12/2024 STAGE/TNM: IIA T2 N0 M0 TREATMENT HISTORY: Care?Plan Start?Date Cycle Day Intent DOCETAXEL,?HERCEPTIN,?PERJETA,?CARBO 03/08/2025 1 Curative?(primary) herceptin?perjeta?adjuvant?for?11?cycles?after?tchp 07/03/2025 1 21 Maintenance HISTORY OF PRESENT ILLNESS: 55-year-old female who was initially diagnosed with suspicious mass in September 2024. Patient eventually had a biopsy in November 2024 and was diagnosed with invasive ductal carcinoma. Patient have not received any treatment for the cancer. Getting worse. OTHER MEDICAL HISTORY/CONDITIONS: SEIZURE??EPISODES?X5?YEARS RT?WRIST?2021,?LT?ARM?2023 FAMILY HISTORY: Patient?denies?family?cancer?history. 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 Celexa - 20 mg 1 tab Daily 2. dexamethasone - 4 mg 1 tab Daily 3. Dilantin Extended - 100 mg 3 Capsule Three times a day 4. Emend - 125 mg (1)- 80 mg (2) 1 Pack Daily 5. Lidocaine Viscous - 2 % 2 Teaspoon Daily 6. Maalox Advanced - 200-200-20 mg/5 mL 20 mL Daily 7. nystatin - 100,000 unit/mL 1 mL Daily 8. ondansetron - 8 mg 1 tab Daily Medications Last Reconciled by Taryn Agosto MA on 07/05/2025 ALLERGIES: Compazine; Compazine REVIEW OF SYSTEMS: A complete 14-point review of systems was performed and is negative except as noted in interval history. PHYSICAL EXAMINATION: VITAL SIGNS: Temperature?98.2, B/P?117/68, Oxygen?Saturation?99% PAIN: 0 - No pain ECOG Performance Status: 0 - Asymptomatic and fully active GENERAL APPEARANCE: Appears well, in no apparent distress, appropriately interactive. HEENT: Normocephalic, no temporal wasting, normal conjunctiva, no scleral icterus, normal hearing, lips without lesions, neck normal range of motion. CARDIOVASCULAR: Not assessed. PULMONARY: Normal respiratory effort, no respiratory distress or use of accessory muscles, speaking in full sentences, no tachypnea. EXTREMITIES: No pedal edema or cyanosis. SKIN: Normal skin appearance. NEUROLOGIC: Alert and oriented x4. PSHYCHIATRIC: Appropriate affect, mood normal, behavior normal, intact thought and speech. Bilateral breast implants palpated. Left breast has about 2-3 cm which was 5 cm mass cystic in nature over the implant under the skin. LABORATORY DATA: I have personally reviewed and interpreted each of the patient?s relevant lab tests, abnormal findings are below: Date 06/08/25 06/29/25 07/02/25 ??WHITE?BLOOD?COUNT?(Thou/mm3) ? 6.7 6.0 ??RED?BLOOD?COUNT?(Miln/mm3) ? 2.59?L 2.50?L ??HEMOGLOBIN?(gm/dl) ? 8.9?L 8.7?L ??HEMATOCRIT?(%) ? 25.2?L 25.1?L ??PLATELET?COUNT?(Thou/mm3) ? 87?L 89?L ??NEUTROPHILS?%,?AUTO?(%) ? 66 83?H ??LYMPH?%,?AUTO?(%) ? 23 11 ??NEUTROPHILS,?AUTO?(Thou/mm3) ? 4.4 5.0 ??GLUCOSE,RANDOM?(mg/dL) 113?H 89 ? ??BLOOD?UREA?NITROGEN?(mg/dL) 14 10 ? ??CREATININE?(mg/dL) 0.70 0.60 ? ??SODIUM?(mmol/L) 137 132?L ? ??POTASSIUM?(mmol/L) 3.5 3.6 ? ??CHLORIDE?(mmol/L) 101 97?L ? ??CrCl?(CandG)?(ml/min) 69.66 80.22 ? ??AST/SGOT?(Unit/L) 25 36?H ? ??ALT/SGPT?(Unit/L) 12 16 ? ??ALKALINE?PHOSPHATASE?(Unit/L) 100 115 ? ??BILIRUBIN,?TOTAL?(mg/dL) 0.3 0.3 ? ??PROTEIN?TOTAL?(gm/dl) 6.6 6.3 ? ??ALBUMIN,?SERUM?(gm/dl) 4.0 4.0 ? ??GLOBULIN?(gm/dl) 2.6 2.3 ? ??ALBUMIN/GLOBULIN?RATIO 1.5 1.7 ? ??CALCIUM,?SERUM?(mg/dL) 8.9 9.0 ? ??CALCIUM?SERUM?(CORRECTED)?(mg/dL) 8.9 9.0 ? ASSESSMENT/PLAN: ER positive [place] negative HER2 positive breast cancer at least stage IIa Patient have HER2 positive breast cancer and will need neoadjuvant chemotherapy Young patient with no comorbidities on TCHP complted chemotherapy cont Herceptin and perjeta referred to surgeon for lump[ectomy with reconstruction . RTC in 2 months ORDERS: Order # Description [id number] Comprehensive Metabolic Panel - 12 + CBC with Auto Diff [id number] Unilateral + Left + Breast Ultrasound [id number] CBC + Comprehensive Metabolic Panel [id number] Lab Appointment [id number] Follow Up Appointment [id number] Cardiac ECHO [id number] Cardiac ECHO RETURN TO CLINIC: I reviewed the diagnosis, prognosis, and recommended treatment/procedure options with the patient (and/or their legal community service representative), including the potential benefits, risks, side effects and alternative therapies. We also discussed the option of no treatment and the possibility of clinical trial participation, if applicable. All questions were addressed, and they demonstrated understanding. They provided informed consent to proceed with the proposed plan of care. BILLING AND COMPLIANCE: I reviewed external records from providers outside my specialty as summarized above. I spent a total of 50 minutes on this patient?s care on the day of their visit excluding time spent related to any billed procedures. This time includes time spent with the patient as well as time spent documenting in the medical record, reviewing patients records and tests, obtaining history, placing orders, communicating with other healthcare professionals, counseling the patient, family or caregiver, and/or care coordination for the diagnoses above. Electronically Signed by: Juan Pinto MD T: 2:15 PM CC: PCP: Charley Rosales Referring: Charley Rosales This document was completed utilizing speech recognition software. Grammatical errors, random word insertions, pronoun errors, and incomplete sentences are an occasional consequence of this system due to software limitations, ambient noise, and hardware issues. Any formal questions or concerns about the content, text or information contained within the body of this dictation should be directly addressed to the provider for clarification.
== END 2025-07-15 23:59 | disposition home or self-care (01) ==
LOC: SCTC 11:54
PROVIDERS: PCP Family Medicine; Referring Provider Physician Assistant; Visit Provider Internal Medicine Hematology & Oncology
DX: Z51.11 Encounter for antineoplastic chemotherapy (principal); C50.412 Malignant neoplasm of upper-outer quadrant of left female breast; Z17.0 Estrogen receptor positive status [ER+]; Z17.22 Progesterone receptor negative status; Z17.31 Human epidermal growth factor receptor 2 positive status
CPT/HCPCS: 36591; 80053; 85025; 96367; 96372; 96413; 96417; 99212; A4216; J1100; J1453; J1642; J2405; J7040; J7050; J9045; J9171; J9306; Q5117; Q5122; G0463; J2506

== ENCOUNTER → 2025-07-10 | Outpatient (CLI) | payer MEDICAID, SELFPAY ==
--- NOTE | 2025-07-10 10:47 | ECHO_ITS ---
Transthoracic Echo Report Ht (in): 64 Wt (lb): 109 Exam Location: Echo Lab Status: [facility] Operator: Lashawn Guadarrama Indications: Procedure Performed: BP: 114 / 89 HR: 56 MEASUREMENTS (Male / Female) Normal Values 2D ECHO LV Diastolic Diameter PLAX 4.0 cm 4.2 - 5.9 / 3.9 - 5.3 cm LV Systolic Diameter PLAX 2.5 cm IVS Diastolic Thickness 0.8 cm 0.6 - 1.0 / 0.6 - 0.9 cm LVPW Diastolic Thickness 1.0 cm 0.6 - 1.0 / 0.6 - 0.9 cm LV Relative Wall Thickness 0.5 LVOT Diameter 1.9 cm LA Volume Index 28.1 cm?/m? 16 - 28 cm?/m? Ascending Aorta Diameter 2.8 cm M-MODE AV Cusp Separation MM 1.3 cm DOPPLER AV Peak Velocity 139.0 cm/s AV Peak Gradient 7.7 mmHg AV Mean Gradient 5.0 mmHg AV Velocity Time Integral 32.4 cm LVOT Peak Velocity 108.0 cm/s LVOT Peak Gradient 4.7 mmHg LVOT Velocity Time Integral 25.7 cm LVOT Cardiac Index 2742.9 cm?/min?m? AV Area Cont Eq vti 2.2 cm? AV Area Cont Eq pk 2.2 cm? MV Area PHT 7.3 cm? Mitral E Point Velocity 84.9 cm/s Mitral A Point Velocity 82.0 cm/s Mitral E to A Ratio 1.0 LV E' Lateral Velocity 11.5 cm/s Mitral E to LV E' Lateral Ratio 7.4 LV E' Septal Velocity 11.7 cm/s Mitral E to LV E' Septal Ratio 7.3 TR Peak Velocity 180.0 cm/s TR Peak Gradient 13.0 mmHg PV Peak Velocity 117.0 cm/s PV Peak Gradient 5.5 mmHg FINDINGS Left Ventricle Hyperdynamic LV, wall thickness, systolic function normal with no obvious regional wall motion abnormalities.There is grade I diastolic dysfunction of the left ventricle (impaired relaxation pattern). . The ejection fraction is visually estimated at 60-65 %. Right Ventricle The right ventricle is normal in size and systolic function. Left Atrium The left atrium is normal by two-dimensional, color flow and Doppler imaging with no structural abnormalities, no thrombus formation present. Right Atrium The right atrium is normal by two-dimensional imaging, color flow and Doppler imaging with no structural abnormalities, no thrombus formation present. Atrial Septum The interatrial septum appears normal with no evidence of a shunt. Aorta The aorta is normal by two-dimensional, color flow and Doppler interrogation. Mitral Valve The mitral valve is normal by two-dimensional, color flow and Doppler interrogation. Trace to mild mitral regurgitation. Aortic Valve The aortic valve is trileaflet and normal by two-dimensional, color flow and Doppler interrogation. There is no significant aortic valve regurgitation. Tricuspid Valve The tricuspid valve is normal by two-dimensional, color flow and Doppler interrogation. There is trace tricuspid valve regurgitation. Pulmonic Valve The pulmonic valve is not well visualized. There is no significant pulmonic valve regurgitation. Vessels The pulmonary artery appears normal. The inferior vena cava pulmonary and hepatic veins appear normal. Pericardium The pericardium is normal by two-dimensional imaging. There is no significant pericardial effusion. CONCLUSIONS Indication: Malignant neoplasm of overlapping sites of left breast Normal left ventricular size and function normal. Estimated Ejection fraction is 60-65%. Grade I diastolic dysfunction. Normal Right ventricular size and function. Normal RVSP. Trace TR and Trace-mild MR. No pericardial effusion. Daniel Cummings (Electronically Signed) Final Date: 10 July 2025 12:35
== END | disposition home or self-care (01) ==
LOC: SDIM 10:36
PROVIDERS: Referring Provider Internal Medicine Hematology & Oncology; Visit Provider Internal Medicine Hematology & Oncology
DX: I08.1 Rheumatic disorders of both mitral and tricuspid valves (principal); I50.30 Unspecified diastolic (congestive) heart failure; C50.812 Malignant neoplasm of overlapping sites of left female breast
CPT/HCPCS: 93306

== ENCOUNTER 2025-08-13 08:13 | Outpatient (RCR) | payer MEDICAID, SELFPAY ==
[2025-07-20 11:22] LABS: Basophils # (Auto) 0.0 Thou/mm3 (0.0-0.2); Basophils % (Auto) 0 % (0-2.5); Eosinophils # (Auto) 0.0 Thou/mm3 (0.0-0.5); Eosinophils % (Auto) 0 % (0-10); Hematocrit 26.0 % (36.0-46.0); Hemoglobin 9.0 g/dL (12.0-16.0); Immature Granulocytes Auto 0.02 Thou/mm3 (0.00-0.00); Lymphocytes # (Auto) 1.2 Thou/mm3 (1.0-4.8); Lymphocytes % (Auto) 30 % (10-50); Mean Corpuscular HGB Conc 34.6 g/dl (31.0-37.0); Mean Corpuscular Hemoglobin 34.7 pg (25.0-35.0); Mean Corpuscular Volume 100 fL (80-100); Monocytes # (Auto) 0.3 Thou/mm3 (0.0-0.8); Monocytes % (Auto) 8 % (0-12); Neutrophils # (Auto) 2.6 Thou/mm3 (1.8-7.7); Neutrophils % (Auto) 62 % (37-80); Nucleated Red Blood Cell # 0.00 Thou/mm3 (0.00-0.00); Nucleated Red Blood Cell % 0 /100 WBC (0); Platelet Count 86 Thou/mm3 (140-440); RDW Standard Deviation 59.3 fL (36.4-46.3); Red Blood Count 2.59 Miln/mm3 (4.00-5.20); White Blood Count 4.2 Thou/mm3 (3.6-11.0)
[2025-07-20 11:47] LABS: Alanine Aminotransferase 16 U/L (10-49); Albumin, Serum 4.1 gm/dL (3.5-5.0); Albumin/Globulin Ratio 1.9 (1.2-2.2); Alkaline Phosphatase 107 U/L (46-116); Anion Gap 12 (7-16); Aspartate Amino Transferase 28 U/L (0-34); BUN/Creatinine Ratio 14 Ratio (12-20); Bilirubin,Total 0.3 mg/dL (0.3-1.2); Blood Urea Nitrogen 10 mg/dL (9-23); Calcium 9.1 mg/dL (8.3-10.6); Calcium (Corrected) 9.1 mg/dL (8.5-10.1); Carbon Dioxide 24.1 mMol/L (20.0-31.0); Chloride 101 mMol/L (98-107); Creatinine (Component) 0.7 mg/dL (0.6-1.3); Globulin 2.2 gm/dL (2.3-3.5); Glucose 69 mg/dL (74-106); Osmolality,Calculated 270 (275-295); Potassium 3.4 mMol/L (3.4-5.1); Sodium 137 mMol/L (136-145); Total Protein 6.3 gm/dL (5.7-8.2); eGFR > 60 See Note
[2025-07-23 12:02] LABS: LDH (Lactate Dehydrogenase) 229 U/L (120-246)
[2025-07-23 12:15] LABS: Folate 14.17 ng/mL (>5.38); Vitamin B12 > 2000 pg/mL (211-911)
[2025-07-23 13:18] LABS: Iron 56 mcg/dL (50-170); Percent Iron Saturation 16 % (20-55); Total Iron Binding Capacity 334 mcg/dL (250-425); Unsaturated Iron Binding 278 (225-295)
[2025-07-23 13:34] LABS: Ferritin 137 ng/mL (7.3-270.7)
[2025-08-10 11:15] LABS: Basophils # (Auto) 0.0 Thou/mm3 (0.0-0.2); Basophils % (Auto) 0 % (0-2.5); Eosinophils # (Auto) 0.0 Thou/mm3 (0.0-0.5); Eosinophils % (Auto) 1 % (0-10); Hematocrit 27.7 % (36.0-46.0); Hemoglobin 9.6 g/dL (12.0-16.0); Immature Granulocytes Auto 0.01 Thou/mm3 (0.00-0.00); Lymphocytes # (Auto) 1.1 Thou/mm3 (1.0-4.8); Lymphocytes % (Auto) 40 % (10-50); Mean Corpuscular HGB Conc 34.7 g/dl (31.0-37.0); Mean Corpuscular Hemoglobin 34.9 pg (25.0-35.0); Mean Corpuscular Volume 101 fL (80-100); Monocytes # (Auto) 0.3 Thou/mm3 (0.0-0.8); Monocytes % (Auto) 13 % (0-12); Neutrophils # (Auto) 1.2 Thou/mm3 (1.8-7.7); Neutrophils % (Auto) 46 % (37-80); Nucleated Red Blood Cell # 0.00 Thou/mm3 (0.00-0.00); Nucleated Red Blood Cell % 0 /100 WBC (0); Platelet Count 117 Thou/mm3 (140-440); RDW Standard Deviation 49.9 fL (36.4-46.3); Red Blood Count 2.75 Miln/mm3 (4.00-5.20); White Blood Count 2.7 Thou/mm3 (3.6-11.0)
[2025-08-10 11:35] LABS: Alanine Aminotransferase 17 U/L (10-49); Albumin, Serum 4.1 gm/dL (3.5-5.0); Albumin/Globulin Ratio 1.9 (1.2-2.2); Alkaline Phosphatase 89 U/L (46-116); Anion Gap 9 (7-16); Aspartate Amino Transferase 26 U/L (0-34); BUN/Creatinine Ratio 15 Ratio (12-20); Bilirubin,Total 0.4 mg/dL (0.3-1.2); Blood Urea Nitrogen 12 mg/dL (9-23); Calcium 9.4 mg/dL (8.3-10.6); Calcium (Corrected) 9.4 mg/dL (8.5-10.1); Carbon Dioxide 25.8 mMol/L (20.0-31.0); Chloride 102 mMol/L (98-107); Creatinine (Component) 0.8 mg/dL (0.6-1.3); Globulin 2.2 gm/dL (2.3-3.5); Glucose 93 mg/dL (74-106); Osmolality,Calculated 273 (275-295); Potassium 3.6 mMol/L (3.4-5.1); Sodium 137 mMol/L (136-145); Total Protein 6.3 gm/dL (5.7-8.2); eGFR > 60 See Note
[2025-08-16 06:28] LABS: Haptoglobin* 26 mg/dL (43-212)
== END 2025-08-14 23:59 | disposition home or self-care (01) ==
LOC: SCTC 08:13
PROVIDERS: PCP Family Medicine; Referring Provider Family Medicine; Visit Provider Internal Medicine Hematology & Oncology
DX: Z51.11 Encounter for antineoplastic chemotherapy (principal); C50.412 Malignant neoplasm of upper-outer quadrant of left female breast; Z17.0 Estrogen receptor positive status [ER+]; Z17.22 Progesterone receptor negative status; Z17.31 Human epidermal growth factor receptor 2 positive status
CPT/HCPCS: 36415; 36591; 80053; 82607; 82728; 82746; 83010; 83540; 83550; 83615; 85025; 86880; 96367; 96413; 96417; A4216; J1642; J2405; J3490; J7040; J7050; J9306; Q5117

== ENCOUNTER → 2025-08-21 | Outpatient (CLI) | payer MEDICAID, SELFPAY ==
--- NOTE | 2025-08-21 15:30 | XR_ITS ---
Examination: Breast ultrasound, unilateral, left Date and time of exam: August 21, 2025, 1600 hours INDICATIONS: Diagnosis malignant neoplasm of left female breast, left breast sonogram 06/23/2025 BI-RADS 5 nodule left breast, enlarging nodule indistinct margins, measuring 3.4 x 1.4 x 2.8 cm Technique: Real-time marcano scale ultrasonographic imaging performed left breast including all 4 quadrants as well as nipple retroareolar and axillary region. Findings: 3:00 cyst 8 x 10 mm No solid nodules. Axillary lymph node 17 x 12 mm IMPRESSION: BI-RADS Category 2: Benign findings
== END | disposition home or self-care (01) ==
PROVIDERS: PCP Family Medicine; Referring Provider Internal Medicine Hematology & Oncology; Visit Provider Internal Medicine Hematology & Oncology
DX: C50.812 Malignant neoplasm of overlapping sites of left female breast (principal)
CPT/HCPCS: 76641

== ENCOUNTER 2025-09-03 08:18 | Outpatient (RCR) | payer MEDICAID, SELFPAY ==
[2025-08-31 10:47] LABS: Basophils # (Auto) 0.0 Thou/mm3 (0.0-0.2); Basophils % (Auto) 0 % (0-2.5); Eosinophils # (Auto) 0.1 Thou/mm3 (0.0-0.5); Eosinophils % (Auto) 2 % (0-10); Hematocrit 31.2 % (36.0-46.0); Hemoglobin 10.7 g/dL (12.0-16.0); Immature Granulocytes Auto 0.01 Thou/mm3 (0.00-0.00); Lymphocytes # (Auto) 0.9 Thou/mm3 (1.0-4.8); Lymphocytes % (Auto) 31 % (10-50); Mean Corpuscular HGB Conc 34.3 g/dl (31.0-37.0); Mean Corpuscular Hemoglobin 34.0 pg (25.0-35.0); Mean Corpuscular Volume 99 fL (80-100); Monocytes # (Auto) 0.3 Thou/mm3 (0.0-0.8); Monocytes % (Auto) 11 % (0-12); Neutrophils # (Auto) 1.5 Thou/mm3 (1.8-7.7); Neutrophils % (Auto) 55 % (37-80); Nucleated Red Blood Cell # 0.00 Thou/mm3 (0.00-0.00); Nucleated Red Blood Cell % 0 /100 WBC (0); Platelet Count 103 Thou/mm3 (140-440); RDW Standard Deviation 43.8 fL (36.4-46.3); Red Blood Count 3.15 Miln/mm3 (4.00-5.20); White Blood Count 2.8 Thou/mm3 (3.6-11.0)
[2025-08-31 11:06] LABS: Alanine Aminotransferase 25 U/L (10-49); Albumin, Serum 4.3 gm/dL (3.5-5.0); Albumin/Globulin Ratio 1.7 (1.2-2.2); Alkaline Phosphatase 92 U/L (46-116); Anion Gap 10 (7-16); Aspartate Amino Transferase 33 U/L (0-34); BUN/Creatinine Ratio 17 Ratio (12-20); Bilirubin,Total 0.2 mg/dL (0.3-1.2); Blood Urea Nitrogen 12 mg/dL (9-23); Calcium 9.0 mg/dL (8.3-10.6); Calcium (Corrected) 9.0 mg/dL (8.5-10.1); Carbon Dioxide 27.0 mMol/L (20.0-31.0); Chloride 102 mMol/L (98-107); Creatinine (Component) 0.7 mg/dL (0.6-1.3); Globulin 2.5 gm/dL (2.3-3.5); Osmolality,Calculated 274 (275-295); Potassium 3.7 mMol/L (3.4-5.1); Sodium 139 mMol/L (136-145); Total Protein 6.8 gm/dL (5.7-8.2); eGFR > 60 See Note
[2025-08-31 11:07] LABS: Glucose 46 mg/dL (74-106)
== END 2025-09-14 23:59 | disposition home or self-care (01) ==
LOC: SCTC 08:18
PROVIDERS: PCP Family Medicine; Referring Provider Family Medicine; Visit Provider Internal Medicine Hematology & Oncology
DX: Z51.11 Encounter for antineoplastic chemotherapy (principal); C50.412 Malignant neoplasm of upper-outer quadrant of left female breast; Z17.0 Estrogen receptor positive status [ER+]; Z17.22 Progesterone receptor negative status; Z17.32 Human epidermal growth factor receptor 2 negative status
CPT/HCPCS: 36415; 80053; 85025; 96367; 96413; 96417; A4216; J1642; J2405; J3490; J7050; J9306; Q5117

== ENCOUNTER 2025-09-24 08:14 | Outpatient (RCR) | payer MEDICAID, SELFPAY ==
[2025-09-21 12:42] LABS: Basophils # (Auto) 0.0 Thou/mm3 (0.0-0.2); Basophils % (Auto) 0 % (0-2.5); Eosinophils # (Auto) 0.0 Thou/mm3 (0.0-0.5); Eosinophils % (Auto) 1 % (0-10); Hematocrit 30.6 % (36.0-46.0); Hemoglobin 10.8 g/dL (12.0-16.0); Immature Granulocytes Auto 0.00 Thou/mm3 (0.00-0.00); Lymphocytes # (Auto) 1.1 Thou/mm3 (1.0-4.8); Lymphocytes % (Auto) 37 % (10-50); Mean Corpuscular HGB Conc 35.3 g/dl (31.0-37.0); Mean Corpuscular Hemoglobin 33.1 pg (25.0-35.0); Mean Corpuscular Volume 94 fL (80-100); Monocytes # (Auto) 0.3 Thou/mm3 (0.0-0.8); Monocytes % (Auto) 11 % (0-12); Neutrophils # (Auto) 1.5 Thou/mm3 (1.8-7.7); Neutrophils % (Auto) 51 % (37-80); Nucleated Red Blood Cell # 0.00 Thou/mm3 (0.00-0.00); Nucleated Red Blood Cell % 0 /100 WBC (0); Platelet Count 109 Thou/mm3 (140-440); RDW Standard Deviation 39.7 fL (36.4-46.3); Red Blood Count 3.26 Miln/mm3 (4.00-5.20); White Blood Count 2.9 Thou/mm3 (3.6-11.0)
[2025-09-21 12:53] LABS: Alanine Aminotransferase 25 U/L (10-49); Albumin, Serum 4.6 gm/dL (3.5-5.0); Albumin/Globulin Ratio 2.2 (1.2-2.2); Alkaline Phosphatase 97 U/L (46-116); Anion Gap 10 (7-16); Aspartate Amino Transferase 36 U/L (0-34); BUN/Creatinine Ratio 16 Ratio (12-20); Bilirubin,Total 0.3 mg/dL (0.3-1.2); Blood Urea Nitrogen 13 mg/dL (9-23); Calcium 9.2 mg/dL (8.3-10.6); Calcium (Corrected) 9.2 mg/dL (8.5-10.1); Carbon Dioxide 25.3 mMol/L (20.0-31.0); Chloride 101 mMol/L (98-107); Creatinine (Component) 0.8 mg/dL (0.6-1.3); Globulin 2.1 gm/dL (2.3-3.5); Glucose 92 mg/dL (74-106); Osmolality,Calculated 272 (275-295); Potassium 3.7 mMol/L (3.4-5.1); Sodium 136 mMol/L (136-145); Total Protein 6.7 gm/dL (5.7-8.2); eGFR > 60 See Note
== END 2025-10-14 23:59 | disposition home or self-care (01) ==
LOC: SCTC 08:14
PROVIDERS: PCP Family Medicine; Referring Provider Family Medicine; Visit Provider Internal Medicine Hematology & Oncology
DX: Z51.11 Encounter for antineoplastic chemotherapy (principal); C50.412 Malignant neoplasm of upper-outer quadrant of left female breast; Z17.0 Estrogen receptor positive status [ER+]; Z17.22 Progesterone receptor negative status; Z17.31 Human epidermal growth factor receptor 2 positive status
CPT/HCPCS: 36415; 80053; 85025; 96367; 96413; 96417; A4216; J1642; J2405; J3490; J7040; J7050; J9306; Q5117

== ENCOUNTER → 2025-10-19 | Outpatient (CLI) | payer MEDICAID, SELFPAY ==
--- NOTE | 2025-10-19 10:30 | ECHO_ITS ---
Patient Info Name: Felisa Schreiber Age: 55 years : 1970 Gender: Female Ht: 163 cm Wt: 50 kg BSA: 1.50 m2 BP: 137 / 110 mmHg HR: 84 bpm Exam Date: 10/19/2025 10:50 AM Admit Date: 10/19/2025 Site: [facility] Room Number: ECHO Patient Status: O Exam Type: CA echo doppler complete Pipe Layer: Lashawn Guadarrama Ordering Physician: Juan Pinto Referring Physician: Juan Pinto Study Info Indications Malignant neoplasm of overlapping sites of left female breas - Primary Location: [facility] Left Ventricular Outflow Tract Name Value Normal LVOT 2D LVOT Diameter 2.0 cm LVOT Doppler LVOT Peak Velocity 132 cm/s LVOT Mean Gradient 4 mmHg LVOT VTI 21 cm LVOT VTI/AV VTI Ratio 0.7 LVOT Stroke Volume 66 ml Pulmonic Valve Name Value Normal PV Doppler PV Peak Velocity 96 cm/s Mitral Valve Name Value Normal MV Doppler MV Decel [place] 1,043 cm/s2 MV PHT 21 ms MV Area (PHT) 10.3 cm2 4.0-5.0 MV Diastolic Function MV E Peak Velocity 77 cm/s MV A Peak Velocity 99 cm/s MV E/A 0.8 MV Annular TDI MV Septal e' Velocity 8.5 cm/s MV E/e' (Septal) 9.1 MV Lateral e' Velocity 9.7 cm/s MV E/e' (Lateral) 8.0 MV e' Average 9.09 cm/s MV E/e' (Average) 8.5 Tricuspid Valve Name Value Normal TV Regurgitation Doppler TR Peak Velocity 166 cm/s Estimated PAP/RSVP RA Pressure 3 mmHg <=5 PA Systolic Pressure 14 mmHg <36 RV Systolic Pressure 14 mmHg <36 Aortic Valve Name Value Normal AV 2D/MM AV Cusp Sep (MM) 1.1 cm AV Doppler AV Peak Velocity 166 cm/s AV Mean Gradient 7 mmHg AV VTI 28 cm AV Area (Cont Eq VTI) 2.3 cm2 >=3.0 AV Area (Cont Eq Frank) 2.5 cm2 AV DI (Frank) 0.80 AV Regurgitation 2D LVOT Area 3.1 cm2 Ventricles Name Value Normal LV Dimensions 2D/MM IVS Diastolic Thickness (2D) 0.8 cm 0.6-0.9 LVID Diastole (2D) 3.6 cm 3.8-5.2 LVIW Diastolic Thickness (2D) 1.0 cm 0.6-0.9 LVID Systole (2D) 2.4 cm 2.2-3.5 LVOT Diameter 2.0 cm LV Mass (2D Cubed) 92.79 g 67.00-162.00 LV Mass Index (2D Cubed) 62 g/m2 43-95 Relative Wall Thickness (2D) 0.56 <=0.42 IVS/LVIW Diastolic Thickness (2D) 0.80 0.00-1.50 LV Fractional Shortening/Ejection Fraction 2D/MM LV Fractional Shortening (2D) 33 % 27-45 LV EF (2D Teichholz) 63 % Atria Name Value Normal LA Dimensions LA Volume (4C A-L) 22 ml LA Volume (BP A-L) 23 ml Summary 1. Left ventricle size is normal and systolic function is normal. Estimated ejection fraction is 60-65%. There is grade II diastolic dysfunction. 2. Right ventricle chamber size is normal and systolic function is normal. Estimated RVSP is 14 mmHg. 3. There is trace mitral valve regurgitation. 4. There is trace tricuspid valve regurgitation. 5. Normal IVC with estimated RA pressure 3 mmHg. Report Signatures Finalized by kR Adames on 10/19/2025 04:37 PM
== END | disposition home or self-care (01) ==
PROVIDERS: PCP Family Medicine; Referring Provider Internal Medicine Hematology & Oncology; Visit Provider Internal Medicine Hematology & Oncology
DX: I50.30 Unspecified diastolic (congestive) heart failure (principal); I08.1 Rheumatic disorders of both mitral and tricuspid valves; C50.812 Malignant neoplasm of overlapping sites of left female breast
CPT/HCPCS: 93306

== ENCOUNTER 2025-11-05 07:53 | Outpatient (RCR) | payer MEDICAID, SELFPAY ==
[2025-10-15 09:03] LABS: Basophils # (Auto) 0.0 Thou/mm3 (0.0-0.2); Basophils % (Auto) 1 % (0-2.5); Eosinophils # (Auto) 0.0 Thou/mm3 (0.0-0.5); Eosinophils % (Auto) 1 % (0-10); Hematocrit 32.1 % (36.0-46.0); Hemoglobin 11.1 g/dL (12.0-16.0); Immature Granulocytes Auto 0.00 Thou/mm3 (0.00-0.00); Lymphocytes # (Auto) 1.3 Thou/mm3 (1.0-4.8); Lymphocytes % (Auto) 44 % (10-50); Mean Corpuscular HGB Conc 34.6 g/dl (31.0-37.0); Mean Corpuscular Hemoglobin 31.7 pg (25.0-35.0); Mean Corpuscular Volume 92 fL (80-100); Monocytes # (Auto) 0.3 Thou/mm3 (0.0-0.8); Monocytes % (Auto) 10 % (0-12); Neutrophils # (Auto) 1.3 Thou/mm3 (1.8-7.7); Neutrophils % (Auto) 45 % (37-80); Nucleated Red Blood Cell # 0.00 Thou/mm3 (0.00-0.00); Nucleated Red Blood Cell % 0 /100 WBC (0); Platelet Count 123 Thou/mm3 (140-440); RDW Standard Deviation 40.1 fL (36.4-46.3); Red Blood Count 3.50 Miln/mm3 (4.00-5.20); White Blood Count 2.9 Thou/mm3 (3.6-11.0)
[2025-10-15 09:16] LABS: Alanine Aminotransferase 35 U/L (10-49); Albumin, Serum 4.5 gm/dL (3.5-5.0); Albumin/Globulin Ratio 1.8 (1.2-2.2); Alkaline Phosphatase 105 U/L (46-116); Anion Gap 9 (7-16); Aspartate Amino Transferase 26 U/L (0-34); BUN/Creatinine Ratio 15 Ratio (12-20); Bilirubin,Total 0.2 mg/dL (0.3-1.2); Blood Urea Nitrogen 12 mg/dL (9-23); Calcium 9.3 mg/dL (8.3-10.6); Calcium (Corrected) 9.3 mg/dL (8.5-10.1); Carbon Dioxide 26.9 mMol/L (20.0-31.0); Chloride 103 mMol/L (98-107); Creatinine (Component) 0.8 mg/dL (0.6-1.3); Globulin 2.5 gm/dL (2.3-3.5); Glucose 83 mg/dL (74-106); Osmolality,Calculated 276 (275-295); Potassium 3.6 mMol/L (3.4-5.1); Sodium 139 mMol/L (136-145); Total Protein 7.0 gm/dL (5.7-8.2); eGFR > 60 See Note
[2025-11-05 08:51] LABS: Basophils # (Auto) 0.0 Thou/mm3 (0.0-0.2); Basophils % (Auto) 1 % (0-2.5); Eosinophils # (Auto) 0.0 Thou/mm3 (0.0-0.5); Eosinophils % (Auto) 1 % (0-10); Hematocrit 32.2 % (36.0-46.0); Hemoglobin 11.3 g/dL (12.0-16.0); Immature Granulocytes Auto 0.01 Thou/mm3 (0.00-0.00); Lymphocytes # (Auto) 1.4 Thou/mm3 (1.0-4.8); Lymphocytes % (Auto) 41 % (10-50); Mean Corpuscular HGB Conc 35.1 g/dl (31.0-37.0); Mean Corpuscular Hemoglobin 31.7 pg (25.0-35.0); Mean Corpuscular Volume 90 fL (80-100); Monocytes # (Auto) 0.3 Thou/mm3 (0.0-0.8); Monocytes % (Auto) 9 % (0-12); Neutrophils # (Auto) 1.7 Thou/mm3 (1.8-7.7); Neutrophils % (Auto) 48 % (37-80); Nucleated Red Blood Cell # 0.00 Thou/mm3 (0.00-0.00); Nucleated Red Blood Cell % 0 /100 WBC (0); Platelet Count 105 Thou/mm3 (140-440); RDW Standard Deviation 40.1 fL (36.4-46.3); Red Blood Count 3.57 Miln/mm3 (4.00-5.20); White Blood Count 3.4 Thou/mm3 (3.6-11.0)
[2025-11-05 09:10] LABS: Alanine Aminotransferase 23 U/L (10-49); Albumin, Serum 4.7 gm/dL (3.5-5.0); Albumin/Globulin Ratio 1.7 (1.2-2.2); Alkaline Phosphatase 101 U/L (46-116); Anion Gap 8 (7-16); Aspartate Amino Transferase 35 U/L (0-34); BUN/Creatinine Ratio 14 Ratio (12-20); Bilirubin,Total 0.3 mg/dL (0.3-1.2); Blood Urea Nitrogen 13 mg/dL (9-23); Calcium 9.0 mg/dL (8.3-10.6); Calcium (Corrected) 9.0 mg/dL (8.5-10.1); Carbon Dioxide 27.4 mMol/L (20.0-31.0); Chloride 102 mMol/L (98-107); Creatinine (Component) 0.9 mg/dL (0.6-1.3); Globulin 2.7 gm/dL (2.3-3.5); Glucose 85 mg/dL (74-106); Osmolality,Calculated 272 (275-295); Potassium 3.6 mMol/L (3.4-5.1); Sodium 137 mMol/L (136-145); Total Protein 7.4 gm/dL (5.7-8.2); eGFR > 60 See Note
== END 2025-11-14 23:59 | disposition home or self-care (01) ==
LOC: SCTC 07:53
PROVIDERS: PCP Family Medicine; Referring Provider Internal Medicine Hematology & Oncology; Visit Provider Internal Medicine Hematology & Oncology
DX: Z51.11 Encounter for antineoplastic chemotherapy (principal); C50.412 Malignant neoplasm of upper-outer quadrant of left female breast; Z17.0 Estrogen receptor positive status [ER+]; Z17.22 Progesterone receptor negative status; Z17.31 Human epidermal growth factor receptor 2 positive status
CPT/HCPCS: 80053; 85025; 96367; 96413; 96417; A4216; J2405; J3490; J7040; J7050; J9306; Q5117